=== PATIENT | male | born 1985 | race Caucasian/White ===

== ENCOUNTER 2022-07-04 15:06 | Emergency (ER) | payer MEDICAID, SELFPAY ==
[2022-07-04 15:08] VITALS: BP 144/91; PULSE 117; RESP 16; TEMP 36.3; O2SAT 100; BMI 25.7
--- NOTE | 2022-07-04 15:25 | ED.RN ---
PT WENT INTO THE BR TO PROVIDE A URINE SAMPLE. PT DROPPED URINE OFF INTO ER ROOM AND THEN AMBULATED OUT OF THE ER. PHYSICIAN NOTIFIED.
== END 2022-07-04 15:20 | disposition left against medical advice (07) ==
LOC: ED 15:29
DX: Z53.21 Procedure and treatment not carried out due to patient leaving prior to being seen by health care provider (principal)
CPT/HCPCS: 99282